=== PATIENT | female | born 1950 | race Caucasian/White ===

== ENCOUNTER 2021-07-25 07:27 | Inpatient (IN) | payer SELFPAY ==
[~2021-07-25] VITALS: Ht 147.3 cm; Wt 49.9 kg
[2021-07-25] MEDS ORDERED: LORAZEPAM 2MG/ML CPJ IV ONE (08:00)
[2021-07-25] MEDS ORDERED: LABETALOL 5MG/ML SYR 20 MG/4 ML SYRINGE IV ONE ×2 (08:00→10:15)
[2021-07-25 08:16] LABS: BASOPHILS % 0.4 % (0.0-2.0); EOSINOPHILS % 1.3 % (0.0-5.0); HEMATOCRIT. 36.1 % (36.0-48.0); LYMPHOCYTES % 18.3 % (20.0-50.0); MEAN CORPUSCULAR HEMOGLOBIN 29.8 pg (28.0-32.0); MEAN CORPUSCULAR VOLUME 82.9 fL (81.0-99.0); MEAN PLATELET VOLUME 5.8 fl (7.4-10.4); MONOCYTES % 5.3 % (2.0-8.0); NEUTROPHILS % 74.7 % (40.0-76.0); PLATELET 249 x1000/uL (130-400); RED BLOOD CELL COUNT 4.35 mill/uL (4.2-5.4); RED CELL DISTRIBUTION WIDTH 12.8 % (11.6-14.6)
[2021-07-25 08:20] LABS: CHLORIDE 87 mEq/L (98-107)
[2021-07-25] MEDS ORDERED: IOHEXOL-350 100 ML BOTTLE ONE (09:36)
[2021-07-25 10:15] LABS: CLARITY URINE CLEAR (CLEAR); COLOR URINE YELLOW (YELLOW); KETONES URINE NEGATIVE (NEGATIVE); LEUKOCYTE ESTERASE URINE NEGATIVE (NEGATIVE); NITRITE URINE NEGATIVE (NEGATIVE); OCCULT BLOOD URINE TRACE (NEGATIVE); PH URINE 7.5 (4.5-8.0); PROTEIN URINE 1+ (NEGATIVE); SPECIFIC GRAVITY URINE 1.016 (1.005-1.030); UROBILINOGEN URINE 0.2 E.U./dL (0.2-1.0)
[2021-07-25] MEDS ORDERED: ASPIRIN 81MG TABLET PO ONE (10:15)
[2021-07-25] MEDS ORDERED: CLONIDINE 0.2MG TABLET PO PRN (15:00)
[2021-07-25 16:00] VITALS: BP 129/69
[2021-07-25 17:29] VITALS: BP 136/83
[2021-07-25 17:30] VITALS: BP 136/83
[2021-07-25 20:00] VITALS: BP 96/59
[2021-07-25] MEDS ORDERED: ACETAMINOPHEN 325MG TABLET PO PRN ×2 (20:30)
[2021-07-25] MEDS ORDERED: ONDANSETRON HCL 4MG/2ML INJ IV PRN (20:30)
[2021-07-25] MEDS ORDERED: HYDRALAZINE 20MG/ML VIAL IV PRN (20:30)
[2021-07-25] MEDS ORDERED: LORAZEPAM 0.5MG TABLET PO PRN (20:30)
[2021-07-25] MEDS ORDERED: DEXTROSE 50% WATER 50ML SYRINGE IV PRN (20:30)
[2021-07-25] MEDS ORDERED: MORPHINE SULFATE 2 MG/ML CPJ (NOT FOR IM USE) IV PRN (20:30)
[2021-07-25] MEDS ORDERED: ZOLPIDEM TARTRATE 5MG TABLET PO PRN (20:30)
[2021-07-25] MEDS ORDERED: CLONIDINE 0.1MG TABLET PO PRN (20:30)
[2021-07-25] MEDS: BLOOD SUGAR DIAGNOSTIC STRIP TEST SCH (20:53)
[2021-07-25] MEDS: INSULIN LISPRO 100 UNITS/ML SUBCUT SCH (20:55)
[2021-07-25] MEDS: SODIUM CHLORIDE 0.9% INJ 3ML FLUSH IVF SCH (20:55)
[2021-07-25 22:00] VITALS: BP_SYST 119; BP_SYST 128; BP_SYST 133; BP_DIAS 56; BP_DIAS 64; BP_DIAS 69
[2021-07-25] MEDS ORDERED: METF500T60 PO (23:35)
[2021-07-25] MEDS ORDERED: GLIP10TA10 PO (23:35)
[2021-07-25] MEDS ORDERED: *PATIENT'S OWN MEDICATION STORAGE XX SCH (23:45)
[2021-07-26] VITALS: BP 123/69
[2021-07-26 04:00] VITALS: BP 157/85
[2021-07-26] MEDS: BLOOD SUGAR DIAGNOSTIC STRIP TEST SCH ×2 (06:23→12:00)
[2021-07-26] MEDS: INSULIN LISPRO 100 UNITS/ML SUBCUT SCH ×2 (06:52→13:41)
[2021-07-26] MEDS: SODIUM CHLORIDE 0.9% INJ 3ML FLUSH IVF SCH ×2 (06:52→14:30)
[2021-07-26 08:00] VITALS: BP 165/83
[2021-07-26 12:00] VITALS: BP 164/71
[2021-07-26 14:38] VITALS: BP 148/74
[2021-07-26 16:00] VITALS: BP 100/69
[2021-07-26] MEDS ORDERED: METFORMIN HCL 500MG TABLET PO SCH (17:40)
[2021-07-26] MEDS ORDERED: INSULIN GLARGINE UD 100 UNITS/ML SYR SUBCUT SCH (22:00)
[2021-07-27] MEDS ORDERED: GLIPIZIDE 5MG TABLET PO SCH (07:10)
== END 2021-07-26 18:14 | disposition left against medical advice (07) | DRG 198 ==
LOC: ER 07:27 → 8WST 10:31 → EDBEDREQ 10:37 → ENRESERV 14:17 → 8WST 17:12
PROVIDERS: ADMIT Internal Medicine; ATTEND Internal Medicine
DX: R07.89 Other chest pain (principal); I25.2 Old myocardial infarction; E11.22 Type 2 diabetes mellitus with diabetic chronic kidney disease; E87.1 Hypo-osmolality and hyponatremia; I12.9 Hypertensive chronic kidney disease with stage 1 through stage 4 chronic kidney disease, or unspecified chronic kidney disease; N13.30 Unspecified hydronephrosis; R00.0 Tachycardia, unspecified; Z53.29 Procedure and treatment not carried out because of patient's decision for other reasons; N18.1 Chronic kidney disease, stage 1; Z82.49 Family history of ischemic heart disease and other diseases of the circulatory system
CPT/HCPCS: 36415; 71045; 71275; 74174; 80053; 81003; 82962; 83880; 84484; 85025; 93005; 93306; 99291; J1815; J2060; J2270; J3490; Q9967